=== PATIENT | female | born 1955 | race Caucasian/White ===

== ENCOUNTER 2016-02-21 00:39 | Emergency (ER) | payer OTHER ==
[2016-02-21 00:52] VITALS: TEMP 98; BMI 27.4
--- NOTE | 2016-02-21 00:55 | PDOC ---
History of Present Illness - History of Present Illness Initial Comments: 02/21/16 04:40 Patient is a 60 year old female with significant medical hx of HTN, migraines, GERD, IBS, Hep C, anxiety, depression, and laminectomy who is presenting to the ED s/p fall. The patient fell after getting out of the wheelchair from her assisted living facility. The patient is somnolent and not answering questions. Upon second interview, patient was awake and alert. The patient reports she feels fine but doesn't remember the fall. Patient offers no complaints. <Zaida Zepeda - Last Filed: 02/21/16 04:40> <Valentina Valverde - Last Filed: 02/21/16 05:51> - General Chief Complaint: Injury Stated Complaint: FALL Time Seen by Provider: 02/21/16 00:55 Past History <Zaida Zepeda - Last Filed: 02/21/16 04:40> - Past Medical History Anemia: No Asthma: No Cancer: No Cardiac Disorders: No CVA: No COPD: No CHF: No Dementia: No Diabetes: No GI Disorders: Yes (GERD, IBS) Disorders: Yes HTN: Yes Hypercholesterolemia: No Liver Disease: Yes Psychiatric Problems: Yes (ANXIETY.) Seizures: No Thyroid Disease: No - Surgical History Abdominal Surgery: No Appendectomy: No Cardiac Surgery: No Cholecystectomy: No Lung Surgery: No Neurologic Surgery: Yes (spinal fusion from neck to rectum.) Orthopedic Surgery: Yes (right shoulder replacement, left wrist repair) - Psycho/Social/Smoking Cessation Hx Anxiety: Yes Suicidal Ideation: No Smoking Status: No Smoking History: Unknown if ever smoked Years of Tobacco Use: 10 Have you smoked in the past 12 months: No Number of Cigarettes Smoked Daily: 0 If you are a former smoker, when did you quit?: 20 years ago Hx Alcohol Use: No Drug/Substance Use Hx: No Substance Use Type: None Hx Substance Use Treatment: No <Valentina Valverde - Last Filed: 02/21/16 05:51> - Past Medical History Allergies/Adverse Reactions: Allergies Allergy/AdvReac Type Severity Reaction Status Date / Time No Known Allergies Allergy Verified 02/21/16 00:52 Home Medications: Ambulatory Orders Acyclovir [Zovirax -] 800 mg PO BID 01/06/16 Clonazepam [Klonopin] 1 mg PO HS 01/06/16 Clonazepam [Klonopin] 2 mg PO HS 01/06/16 Fluoxetine HCl 20 mg PO ASDIR 01/06/16 Furosemide [Lasix -] 60 mg PO DAILY 01/06/16 Gabapentin [Neurontin] 600 mg PO TID 01/06/16 Lactulose 20 gm PO QID 01/06/16 Ledipasvir/Sofosbuvir [Harvoni 90-400 mg Tablet] 1 each PO DAILY 01/06/16 Magnesium Hydrox 2400MG/30Ml [Milk of Magnesia -] 30 ml PO HS 01/06/16 Nystatin Cream [Mycostatin Cream -] 1 applic TP DAILY 01/06/16 Oxycodone HCl/Acetaminophen [Percocet 10-325 mg Tablet] 1 each PO Q6H 01/06/16 Polyethylene Glycol 3350 [Miralax (For Daily Use) -] 17 gm PO DAILY 01/06/16 Potassium Chloride 20 meq PO DAILY 01/06/16 Pramipexole Di-HCl [Mirapex] 0.25 mg PO AM 01/06/16 Pramipexole Di-HCl [Mirapex] 0.5 mg PO ACDIN 01/06/16 Quetiapine Fumarate [Seroquel] 400 tab PO HS 01/06/16 Topiramate [Topamax] 50 mg PO BID 01/06/16 Review of Systems - Review of Systems Comments:: 02/21/16 04:42 CONSTITUTIONAL: Absent: fever, chills, diaphoresis, generalized weakness, malaise, loss of appetite HEENT: Absent: rhinorrhea, nasal congestion, throat pain, throat swelling, difficulty swallowing, mouth swelling, ear pain, eye pain, visual changes CARDIOVASCULAR: Absent: chest pain, syncope, palpitations, irregular heart rate, lightheadedness , peripheral edema RESPIRATORY: Absent: cough, shortness of breath, dyspnea with exertion, orthopnea, wheezing, stridor, hemoptysis GASTROINTESTINAL: Absent: abdominal pain, abdominal distension, nausea, vomiting, diarrhea, constipation, melena, hematochezia GENITOURINARY: Absent: dysuria, frequency, urgency, hesitancy, hematuria, flank pain, genital pain MUSCULOSKELETAL: Absent: myalgia, arthralgia, joint swelling SKIN: Absent: rash, itching, pallor HEMATOLOGIC/IMMUNOLOGIC: Absent: easy bleeding, easy bruising, lymphadenopathy, frequent infections ENDOCRINE: Absent: unexplained weight gain, unexplained weight loss, heat intolerance, cold intolerance NEUROLOGIC: Absent: headache, focal weakness or paresthesia, dizziness, unsteady gait, seizure, mental status changes, bladder or bowel incontinence. PSYCHIATRIC: Absent: anxiety, depression, suicidal or homicidal ideation, hallucinations <Zaida Zepeda - Last Filed: 02/21/16 04:40> *Physical Exam - Vital Signs Last Vital Signs Temp Pulse Resp BP Pulse Ox 98 F 65 16 106/60 98 02/21/16 00:50 02/21/16 00:50 02/21/16 00:50 02/21/16 00:50 02/21/16 00:50 - Physical Exam Comments: 02/21/16 04:42 GENERAL: Well developed, well nourished. Awake and alert. No acute distress. HEENT: Normocephalic, atraumatic. PERRLA, EOMI. No conjunctival pallor. Sclera are non- icteric. Moist mucous membranes. Oropharynx is clear. NECK: Supple. Full ROM. No JVD. Carotid pulses 2+ and symmetric, without bruits. No thyromegaly. No lymphadenopathy. CARDIOVASCULAR: Regular rate and rhythm. No murmurs, rubs, or gallops. Distal pulses are 2+ and symmetric. PULMONARY: No evidence of respiratory distress. Lungs clear to auscultation bilaterally. No wheezing, rales or rhonchi. ABDOMINAL: Soft. Non-tender. Non-distended. No rebound or guarding. No organomegaly. Normoactive bowel sounds. MUSCULOSKELETAL: Normal range of motion at all joints. No bony deformities or tenderness. No CVA tenderness. EXTREMITIES: No cyanosis. No clubbing. No edema. No calf tenderness. SKIN: Warm and dry. Normal capillary refill. No rashes. No jaundice. NEUROLOGICAL: Alert, awake, appropriate. AAOX3. Cranial nerves 2-12 intact. Normal speech. PSYCHIATRIC: Cooperative. Good eye contact. Appropriate mood and affect. <Zaida Zepeda - Last Filed: 02/21/16 04:40> - Vital Signs Last Vital Signs Temp Pulse Resp BP Pulse Ox 98 F 65 16 106/60 98 02/21/16 00:50 02/21/16 00:50 02/21/16 00:50 02/21/16 00:50 02/21/16 00:50 <Valentina Valverde - Last Filed: 02/21/16 05:51> ED Treatment Course - LABORATORY CBC & Chemistry Diagram: 02/21/16 01:15 02/21/16 01:15 - ADDITIONAL ORDERS Additional order review: Laboratory Results 02/21/16 02/21/16 01:15 01:15 Sodium 143 Potassium 2.8 L* Chloride 108 H Carbon Dioxide 22 D Anion Gap 13 BUN 18 D Creatinine 1.3 H Creat Clearance w eGFR 41.50 Random Glucose 89 Calcium 8.4 L Total Bilirubin 0.4 AST 23 D ALT 24 Alkaline Phosphatase 165 H D Ammonia 29.29 Total Protein 7.3 Albumin 3.5 02/21/16 01:15 RBC 3.85 MCV 97.4 H MCHC 32.1 RDW 15.8 H MPV 7.5 Neutrophils % 49.7 Lymphocytes % 38.8 Monocytes % 9.8 Eosinophils % 1.1 Basophils % 0.6 <Zaida Zepeda - Last Filed: 02/21/16 04:40> - LABORATORY CBC & Chemistry Diagram: 02/21/16 01:15 02/21/16 01:15 <Valentina Valverde - Last Filed: 02/21/16 05:51> Medical Decision Making - Medical Decision Making 02/21/16 02:12 Clinical Laboratory Science Professor: ([email or web address]) Begin of Report Content Referring Physician: Valentina Valverde Patient Name: Ave Hopson THIS IS A PRELIMINARYREPORT FROM [facility] OPERATOR HELPER EXAM: CT brain without contrast IMAGES: 145 EXAM DATE AND TIME: 2016-02-21 01:38:22.0 REASON FOR EXAM: Fell out of wheelchair. Drowsy. COMPARISON: No FINDINGS: Normal brain. No acute intracranial abnormality. No bleed. No visible acute infarct. Osseous structures are intact. 02/21/16 05:49 Pt comes after "fall from her wheelchair" Exam is normal. Pt is sleepy and asks that we not bother her. Upon resting and awaking, pt is alert. Labs demonstrate hypo K+ and she tells us that she always has low K+. We repleted her electrolytes. SHe will be sent back to her assisted living facility as her neuro exam is normal, and other labs are normal. <Valentina Valverde - Last Filed: 02/21/16 05:51> *DC/Admit/Observation/Transfer - Attestations Scribe Attestion: 02/21/16 04:43 Documentation prepared by Zaida Zepeda, acting as medical records administrator for Valentina Valverde MD. <Zaida Zepeda - Last Filed: 02/21/16 04:40> - Discharge Dispostion Admit: No <Valentina Valverde - Last Filed: 02/21/16 05:51> Diagnosis at time of Disposition: Fall, Hypokalemia - Discharge Dispostion Disposition: HOME Condition at time of disposition: Stable - Referrals Referrals: Melody Bailon MD [Primary Care Provider] -
[2016-02-21 01:21] LABS: BASOPHIL 0.6 % (0-2.0); EOSINOPHIL 1.1 % (0-4.5); MCH 31.3 pg (25.7-33.7); MCHC 32.1 g/dl (32.0-36.0); MEAN CELL VOLUME 97.4 fl (80-96); MEAN PLT VOLUME 7.5 fl (7.5-11.1); NEUTROPHILS 49.7 % (42.8-82.8); PLATELET COUNT 271 K/MM3 (134-434); RDW 15.8 % (11.6-15.6); WHITE BLOOD COUNT 7.2 K/mm3 (4.0-10.0)
[2016-02-21 01:50] LABS: ALBUMIN 3.5 g/dl (3.4-5.0); BILIRUBIN,TOTAL 0.4 mg/dL (0.2-1.0); CALCIUM 8.4 mg/dL (8.5-10.1); CREATININE 1.3 mg/dL (0.55-1.02); TOT PROT 7.3 g/dl (6.4-8.2)
[2016-02-21] MEDS ORDERED: MAGNESIUM SULF 50% (8.12 MEQ/2 ML-1 GM VIAL) IVPB ONE (01:56)
[2016-02-21] MEDS ORDERED: MAGNESIUM SULF 50% (8.12 MEQ/2 ML-1 GM VIAL) ONE (02:19)
[2016-02-21] MEDS ORDERED: KCL 10 MEQ IVPB 300 ML IVPB ONE (02:20)
[2016-02-21] MEDS: KCL 10 MEQ IVPB 100 ML IVPB SCH ×3 (02:35→05:18)
[2016-02-21] MEDS ORDERED: POTASSIUM CHLORIDE 40 MEQ/30 ML UNIT DOSE CUP PO ONE (03:12)
[2016-02-21] MEDS ORDERED: POTASSIUM CHLORIDE 40 MEQ/30 ML UNIT DOSE CUP ONE (05:13)
[2016-02-21 07:02] VITALS: BP 153/72; PULSE 89
== END 2016-02-21 07:25 | disposition home or self-care (01) ==
LOC: JER 00:39
PROC: 3E0337Z Introduction of Electrolytic and Water Balance Substance into Peripheral Vein, Percutaneous Approach (ICD-10-PCS; principal; 2016-02-21)
PROC: 3E033GC Introduction of Other Therapeutic Substance into Peripheral Vein, Percutaneous Approach (ICD-10-PCS; 2016-02-21)
DX: E87.6 Hypokalemia (principal); W05.0XXA Fall from non-moving wheelchair, initial encounter; Y93.89 Activity, other specified; Y92.128 Other place in nursing home as the place of occurrence of the external cause; I10 Essential (primary) hypertension; K21.9 Gastro-esophageal reflux disease without esophagitis; F41.9 Anxiety disorder, unspecified
CPT/HCPCS: 36415; 70450-TC; 71010-TC; 80053; 82140; 85025; 96365; 96375; 99282-25

== ENCOUNTER 2016-04-14 11:13 | Emergency (ER) | payer OTHER ==
[2016-04-14 11:30] VITALS: PULSE 76; TEMP 97.4; BMI 27.4
--- NOTE | 2016-04-14 11:30 | PDOC ---
History of Present Illness - History of Present Illness Initial Comments: 04/14/16 11:52 Patient is a 60 year old female with significant medical hx of HTN, migraines, GERD, IBS, Hep C, anxiety, depression, and laminectomy who is [facility] with [facility] to the left foot. Patient reports she was wheeling herself in a wheelchair, when she banged her right foot into the wall and fell out. She complains of pain to the foot at rest and with weight bearing. The patient is a poor historian. 04/14/16 12:01 After discussing the patient with case filler from [facility], the patient was sent to the ED today because she fell and hit her right knee while using a walker with wheels. <Zaida Zepeda - Last Filed: 04/14/16 12:03> <Neptali Mora - Last Filed: 04/14/16 15:16> - General Chief Complaint: Injury Stated Complaint: FALL Time Seen by Provider: 04/14/16 11:30 Past History <Zaida Zepeda - Last Filed: 04/14/16 12:03> - Past Medical History Anemia: No Asthma: No Cancer: No Cardiac Disorders: No CVA: No COPD: No CHF: No Dementia: No Diabetes: No GI Disorders: Yes (GERD, IBS) Disorders: Yes HTN: Yes Hypercholesterolemia: No Liver Disease: Yes Psychiatric Problems: Yes (ANXIETY.) Seizures: No Thyroid Disease: No - Surgical History Abdominal Surgery: No Appendectomy: No Cardiac Surgery: No Cholecystectomy: No Lung Surgery: No Neurologic Surgery: Yes (spinal fusion from neck to rectum.) Orthopedic Surgery: Yes (right shoulder replacement, left wrist repair) - Immunization History Immunization Up to Date: Yes - Psycho/Social/Smoking Cessation Hx Anxiety: Yes Suicidal Ideation: No Smoking Status: No Smoking History: Former smoker Years of Tobacco Use: 10 Have you smoked in the past 12 months: No Number of Cigarettes Smoked Daily: 0 If you are a former smoker, when did you quit?: 1969 Information on smoking cessation initiated: No Hx Alcohol Use: No Drug/Substance Use Hx: No Substance Use Type: None Hx Substance Use Treatment: No <Neptali Mora - Last Filed: 04/14/16 15:16> - Past Medical History Allergies/Adverse Reactions: Allergies Allergy/AdvReac Type Severity Reaction Status Date / Time No Known Allergies Allergy Verified 04/14/16 11:21 Home Medications: Ambulatory Orders Acyclovir [Zovirax -] 800 mg PO BID 01/06/16 Clonazepam [Klonopin] 2 mg PO HS 01/06/16 Fluoxetine HCl 80 mg PO DAILY 01/06/16 Furosemide [Lasix -] 60 mg PO DAILY 01/06/16 Gabapentin [Neurontin] 600 mg PO TID 01/06/16 Lactulose 20 gm PO QID 01/06/16 Ledipasvir/Sofosbuvir [Harvoni 90-400 mg Tablet] 1 each PO DAILY 01/06/16 Magnesium Hydrox 2400MG/30Ml [Milk of Magnesia -] 30 ml PO HS 01/06/16 Nystatin Cream [Mycostatin Cream -] 1 applic TP DAILY 01/06/16 Oxycodone HCl/Acetaminophen [Percocet 10-325 mg Tablet] 1 each PO Q6H 01/06/16 Polyethylene Glycol 3350 [Miralax (For Daily Use) -] 17 gm PO DAILY 01/06/16 Potassium Chloride 20 meq PO DAILY 01/06/16 Pramipexole Di-HCl [Mirapex] 0.25 mg PO AM 01/06/16 Quetiapine Fumarate [Seroquel] 400 tab PO HS 01/06/16 Topiramate [Topamax] 50 mg PO BID 01/06/16 Potassium Chloride 20 meq PO DAILY 04/14/16 Sulfamethoxazole/Trimethoprim [Bactrim Ds -] 1 tab PO DAILY 04/14/16 Review of Systems - Review of Systems Comments:: 04/14/16 11:52 GENERAL/CONSTITUTIONAL: No fever or chills. No weakness. HEAD, EYES, EARS, NOSE AND THROAT: No change in vision. No ear pain or discharge. No sore throat. CARDIOVASCULAR: No chest pain or shortness of breath. RESPIRATORY: No cough, wheezing, or hemoptysis. GASTROINTESTINAL: No nausea, vomiting, diarrhea or constipation. GENITOURINARY: No dysuria, frequency, or change in urination. MUSCULOSKELETAL: Right foot pain. No joint or muscle swelling. No neck or back pain. SKIN: No rash NEUROLOGIC: No headache, vertigo, loss of consciousness, or change in strength/ sensation. 04/14/16 12:03 Patient is an unreliable historian. <Zaida Zepeda - Last Filed: 04/14/16 12:03> *Physical Exam - Vital Signs Last Vital Signs Temp Pulse Resp BP Pulse Ox 97.4 F L 76 18 145/84 100 04/14/16 11:21 04/14/16 11:21 04/14/16 11:21 04/14/16 11:21 04/14/16 11:21 - Physical Exam Comments: 04/14/16 11:53 GENERAL: Awake, alert, and fully oriented, in no acute distress HEAD: No signs of trauma EYES: PERRLA, EOMI, sclera anicteric, conjunctiva clear ENT: Auricles normal inspection, hearing grossly normal, nares patent, oropharynx clear without exudates. Moist mucosa NECK: Normal ROM, supple, no lymphadenopathy, JVD, or masses LUNGS: Breath sounds equal, clear to auscultation bilaterally. No wheezes, and no crackles HEART: Regular rate and rhythm, normal S1 and S2, no murmurs, rubs or gallops ABDOMEN: Soft, nontender, normoactive bowel sounds. No guarding, no rebound. No masses EXTREMITIES: Normal range of motion, no edema. No clubbing or cyanosis. No cords, deformity, erythema, or tenderness NEUROLOGICAL: Cranial nerves II through XII grossly intact. Normal speech, normal gait SKIN: Warm, Dry, normal turgor, no rashes or lesions noted. ENDOCRINE: No increased thirst. No abnormal weight change. HEMATOLOGIC/LYMPHATIC: No anemia, easy bleeding, or history of blood clots. ALLERGIC/IMMUNOLOGIC: No hives or skin allergy. <Luc Zepedaantha - Last Filed: 04/14/16 12:03> - Vital Signs Last Vital Signs Temp Pulse Resp BP Pulse Ox 97.4 F L 76 18 145/84 100 04/14/16 11:21 04/14/16 11:21 04/14/16 11:21 04/14/16 11:21 04/14/16 11:21 <Neptali Mora - Last Filed: 04/14/16 15:16> ED Treatment Course - LABORATORY CBC & Chemistry Diagram: 04/14/16 12:48 04/14/16 13:00 <Neptali Mora - Last Filed: 04/14/16 15:16> *DC/Admit/Observation/Transfer - Attestations Scribe Attestion: 04/14/16 11:55 Documentation prepared by Zaida Zepeda, acting as certified medical dosimetrist for Neptali Mora MD. <Zaida Zepeda - Last Filed: 04/14/16 12:03> - Discharge Dispostion Admit: No - Attestations Physician Attestion: 04/14/16 11:30 I, Dr. Neptali Mora, attest that this document has been prepared under my direction and personally reviewed by me in its entirety. I further attest, that it accurately reflects all work, treatment, procedures and medical decision -making performed by me. <Neptali Mora - Last Filed: 04/14/16 15:16> Diagnosis at time of Disposition: Knee contusion Qualifiers: Encounter type: initial encounter Laterality: right Qualified Code(s): S80.01XA - Contusion of right knee, initial encounter - Discharge Dispostion Disposition: HOME Condition at time of disposition: Good - Referrals Referrals: Melody Bailon MD [Primary Care Provider] - - Patient Instructions Printed Discharge Instructions: DI for Contusion Additional Instructions: Ave- Sorry this happened to you this morning. Return to us if any problems. You can use the Percocet that you already have for pain in that right knee. Return to us if any problems. Best- Dr. Neptali Mora
[2016-04-14 13:04] LABS: MCH 32.1 pg (25.7-33.7); MCHC 32.7 g/dl (32.0-36.0); MEAN CELL VOLUME 98.4 fl (80-96); MEAN PLT VOLUME 7.8 fl (7.5-11.1); PLATELET COUNT 221 K/MM3 (134-434); RDW 15.1 % (11.6-15.6); WHITE BLOOD COUNT 9.9 K/mm3 (4.0-10.0)
[2016-04-14 13:16] LABS: INR 1.05 (0.82-1.09); PROTHROMBIN TIME (PATIENT) 11.6 SEC (9.98-11.88)
[2016-04-14 13:30] LABS: ALBUMIN 3.6 g/dl (3.4-5.0); BILIRUBIN,TOTAL 0.4 mg/dL (0.2-1.0); CALCIUM 8.6 mg/dL (8.5-10.1); CREATININE 1.4 mg/dL (0.55-1.02); TOT PROT 7.5 g/dl (6.4-8.2)
[2016-04-14 15:40] VITALS: BP 152/88
== END 2016-04-14 15:40 ==
LOC: JER 11:13
DX: S80.01XA Contusion of right knee, initial encounter (principal); W18.39XA Other fall on same level, initial encounter; Y93.89 Activity, other specified; Y92.128 Other place in nursing home as the place of occurrence of the external cause; I10 Essential (primary) hypertension; K21.9 Gastro-esophageal reflux disease without esophagitis; B18.2 Chronic viral hepatitis C; F41.9 Anxiety disorder, unspecified
CPT/HCPCS: 36415; 73562-TC-RT; 80053; 82140; 85027; 85610; 99282-25

== ENCOUNTER 2016-04-15 01:10 | Emergency (ER) | payer OTHER ==
[2016-04-15 01:14] VITALS: BP 123/66; PULSE 70; TEMP 97.2; BMI 21.9
--- NOTE | 2016-04-15 02:43 | PDOC ---
History of Present Illness - General History Source: Patient, Longterm Records Exam Limitations: Other - History of Present Illness Initial Comments: 04/15/16 02:44 The patient is a 60 year old female, with a significant past medical history of migraines, hypertension, GERD, irritable bowel syndrome, Hep C, anxiety, depression, and laminectomy, who presents to the emergency department from assisted living s/p fall earlier today. The patient does not describe the method of her fall, and denies any head trauma, LOC, headache, changes in vision , or dizziness. Per records, the patient is on methadone. The patient recently presented to the ED on 04/14/16 s/p falling out of her wheelchair and banging her right foot. The patients history is limited due to current clinical condition. Past Surgical History: Spinal fusion from neck to rectum, right shoulder replacement, left hip repair Social History: Former Smoker (1969). PCP: Dr. Melody Bailon <Kyaw Rangel - Last Filed: 04/15/16 02:43> <Valentina Valverde - Last Filed: 04/15/16 23:39> - General Chief Complaint: Injury Stated Complaint: WEAKNESS Time Seen by Provider: 04/15/16 01:12 Past History <Kyaw Rangel - Last Filed: 04/15/16 02:43> - Past Medical History Anemia: No Asthma: No Cancer: No Cardiac Disorders: No CVA: No COPD: No CHF: No Dementia: No Diabetes: No GI Disorders: Yes (GERD, IBS) Disorders: Yes HTN: Yes Hypercholesterolemia: No Liver Disease: Yes Psychiatric Problems: Yes (ANXIETY.) Seizures: No Thyroid Disease: No - Surgical History Abdominal Surgery: No Appendectomy: No Cardiac Surgery: No Cholecystectomy: No Lung Surgery: No Neurologic Surgery: Yes (spinal fusion from neck to rectum.) Orthopedic Surgery: Yes (right shoulder replacement, left wrist repair) - Immunization History Immunization Up to Date: Yes - Psycho/Social/Smoking Cessation Hx Anxiety: Yes Suicidal Ideation: No Smoking Status: No Smoking History: Unknown if ever smoked Years of Tobacco Use: 10 Have you smoked in the past 12 months: No Number of Cigarettes Smoked Daily: 0 If you are a former smoker, when did you quit?: 20 years ago Information on smoking cessation initiated: No Hx Alcohol Use: No Drug/Substance Use Hx: No Substance Use Type: None Hx Substance Use Treatment: No <Valentina Valverde - Last Filed: 04/15/16 23:39> - Past Medical History Allergies/Adverse Reactions: Allergies Allergy/AdvReac Type Severity Reaction Status Date / Time No Known Allergies Allergy Verified 04/15/16 01:11 Home Medications: Ambulatory Orders Acyclovir [Zovirax -] 800 mg PO BID 01/06/16 Clonazepam [Klonopin] 2 mg PO HS 01/06/16 Fluoxetine HCl 80 mg PO DAILY 01/06/16 Furosemide [Lasix -] 60 mg PO ASDIR 01/06/16 Gabapentin [Neurontin] 600 mg PO TID 01/06/16 Lactulose 20 gm PO QID 01/06/16 Ledipasvir/Sofosbuvir [Harvoni 90-400 mg Tablet] 1 each PO DAILY 01/06/16 Nystatin Cream [Mycostatin Cream -] 1 applic TP DAILY 01/06/16 Oxycodone HCl/Acetaminophen [Percocet 10-325 mg Tablet] 1 each PO Q6H 01/06/16 Potassium Chloride 20 meq PO DAILY 01/06/16 Pramipexole Di-HCl [Mirapex] 0.25 mg PO AM 01/06/16 Quetiapine Fumarate [Seroquel] 400 tab PO HS 01/06/16 Topiramate [Topamax] 50 mg PO BID 01/06/16 Sulfamethoxazole/Trimethoprim [Bactrim Ds -] 1 tab PO BID 04/14/16 Naproxen [Naprosyn -] 500 mg PO BID 04/15/16 Pramipexole Di-HCl [Mirapex] 0.5 mg PO HS 04/15/16 Review of Systems - Review of Systems Able to Perform ROS?: No Comments:: 04/15/16 02:44 The patient's history is limited due to current clinical condition. <Kyaw Rangel - Last Filed: 04/15/16 02:43> *Physical Exam - Vital Signs Last Vital Signs Temp Pulse Resp BP Pulse Ox 97.2 F L 70 16 123/66 99 04/15/16 01:11 04/15/16 01:11 04/15/16 01:11 04/15/16 01:11 04/15/16 01:11 - Physical Exam Comments: 04/15/16 02:45 GENERAL: The patient is in no acute distress. Afebrile HEAD: No signs of trauma EYES: PERRLA, EOMI, sclera anicteric, conjunctiva clear ENT: Auricles normal inspection, hearing grossly normal, nares patent, oropharynx clear without exudates. Moist mucosa NECK: Normal ROM, supple, no lymphadenopathy, JVD, or masses LUNGS: Breath sounds equal, clear to auscultation bilaterally. No wheezes, and no crackles HEART: Regular rate and rhythm, normal S1 and S2, no murmurs, rubs or gallops ABDOMEN: Constipated (Gassy). Soft, nontender. No guarding, no rebound. No masses EXTREMITIES: Bilateral pitting edema of the legs up to her thighs. Normal range of motion. No clubbing or cyanosis. No cords, erythema, or tenderness NEUROLOGICAL: Cranial nerves II through XII grossly intact. Normal speech, normal gait SKIN: Warm, Dry, normal turgor, no rashes or lesions noted. <Kyaw Rangel - Last Filed: 04/15/16 02:43> - Vital Signs Last Vital Signs Temp Pulse Resp BP Pulse Ox 97.2 F L 70 16 123/66 99 04/15/16 01:11 04/15/16 01:11 04/15/16 01:11 04/15/16 01:11 04/15/16 01:11 <Valentina Valverde - Last Filed: 04/15/16 23:39> ED Treatment Course - LABORATORY CBC & Chemistry Diagram: 04/15/16 01:43 04/15/16 03:43 <Valentina Valverde - Last Filed: 04/15/16 23:39> Medical Decision Making - Medical Decision Making 04/15/16 23:37 Pt comes after a fall at her assisted living facility; she is on methadone. Now she is alert and awake and arousable when she tries to sleep. SHe tells us that she didn't hit her head and that nothing hurts her. Her exam is normal. Normal neuro exam. She has normal basic labs and she will go back home. <Valentina Valverde - Last Filed: 04/15/16 23:39> *DC/Admit/Observation/Transfer - Attestations Scribe Attestion: 04/15/16 02:45 Documentation prepared by Kyaw Rangel, acting as biomedical engineer for Valentina Valverde MD. <Kyaw Rangel - Last Filed: 04/15/16 02:43> - Discharge Dispostion Admit: No <Valentina Valverde - Last Filed: 04/15/16 23:39> Diagnosis at time of Disposition: Fall, Methadone maintenance therapy patient - Discharge Dispostion Disposition: HOME Condition at time of disposition: Stable - Referrals Referrals: Melody Bailon MD [Primary Care Provider] - - Patient Instructions Printed Discharge Instructions: How to Prevent Falls
[2016-04-15 03:53] LABS: BASOPHIL 0.2 % (0-2.0); EOSINOPHIL 0.9 % (0-4.5); MCH 32.3 pg (25.7-33.7); MCHC 32.6 g/dl (32.0-36.0); MEAN CELL VOLUME 99.2 fl (80-96); MEAN PLT VOLUME 8.2 fl (7.5-11.1); NEUTROPHILS 66.1 % (42.8-82.8); PLATELET COUNT 215 K/MM3 (134-434); RDW 15.2 % (11.6-15.6); WHITE BLOOD COUNT 10.5 K/mm3 (4.0-10.0)
[2016-04-15 04:13] LABS: ALBUMIN 3.3 g/dl (3.4-5.0); BILIRUBIN,TOTAL 0.3 mg/dL (0.2-1.0); CREATININE 1.7 mg/dL (0.55-1.02); TOT PROT 7.2 g/dl (6.4-8.2)
== END 2016-04-15 06:14 | disposition home or self-care (01) ==
LOC: JER 01:10
DX: Z04.3 Encounter for examination and observation following other accident (principal); W18.30XA Fall on same level, unspecified, initial encounter; Y93.9 Activity, unspecified; Y92.238 Other place in hospital as the place of occurrence of the external cause; F11.20 Opioid dependence, uncomplicated; F41.9 Anxiety disorder, unspecified; K21.9 Gastro-esophageal reflux disease without esophagitis; I10 Essential (primary) hypertension; K76.9 Liver disease, unspecified; M43.20 Fusion of spine, site unspecified
CPT/HCPCS: 36415; 80053; 85025; 99283-25

== ENCOUNTER 2016-04-26 21:54 | Emergency (ER) | payer OTHER ==
[2016-04-26 22:09] VITALS: TEMP 98.3; BMI 24.1
--- NOTE | 2016-04-26 23:04 | PDOC ---
History of Present Illness - History of Present Illness Initial Comments: 04/26/16 23:50 Patient is a 60 year old female, from assisted living facility, with significant medical hx of HTN, migraines, GERD, IBS, Hep C, anxiety, depression , and laminectomy who has been sent to the ED from facility for fall. Tonight the patient was sitting in a chair, waiting for her girlfriend to get out of the bathroom, when she fell asleep and fell forward onto the floor, hitting her face. The patient sustained a bruise to her nose. She states that she feels fine and wants to go home. Denies nausea, vomiting, shortness of breath, chest pain, or dizziness. <Zaida Zepeda - Last Filed: 04/27/16 00:42> <Oumar Mccormack - Last Filed: 04/27/16 01:03> - General Chief Complaint: Injury Stated Complaint: FALL Time Seen by Provider: 04/26/16 22:30 Past History <Zaida Zepeda - Last Filed: 04/27/16 00:42> - Past Medical History Anemia: No Asthma: No Cancer: No Cardiac Disorders: No CVA: No COPD: No CHF: No Dementia: No Diabetes: No GI Disorders: Yes (GERD, IBS) Disorders: Yes HTN: Yes Hypercholesterolemia: No Liver Disease: Yes (hx of hep c) Psychiatric Problems: Yes (ANXIETY.depression) Seizures: No Thyroid Disease: No - Surgical History Abdominal Surgery: No Appendectomy: No Cardiac Surgery: No Cholecystectomy: No Lung Surgery: No Neurologic Surgery: Yes (spinal fusion from neck to rectum.) Orthopedic Surgery: Yes (right shoulder replacement, left wrist repair) - Immunization History Immunization Up to Date: Yes - Psycho/Social/Smoking Cessation Hx Anxiety: Yes Suicidal Ideation: No Smoking Status: No Smoking History: Unknown if ever smoked Years of Tobacco Use: 10 Have you smoked in the past 12 months: No Number of Cigarettes Smoked Daily: 0 If you are a former smoker, when did you quit?: 20 years ago Hx Alcohol Use: Yes (hx of alcohol abuse) Drug/Substance Use Hx: Yes (hx of heroin abuse) Substance Use Type: None Hx Substance Use Treatment: No <Oumar Mccormack - Last Filed: 04/27/16 01:03> - Past Medical History Allergies/Adverse Reactions: Allergies Allergy/AdvReac Type Severity Reaction Status Date / Time No Known Allergies Allergy Verified 04/26/16 22:06 Home Medications: Ambulatory Orders Acyclovir [Zovirax -] 800 mg PO BID 01/06/16 Clonazepam [Klonopin] 4 mg PO HS 01/06/16 Fluoxetine HCl 80 mg PO DAILY 01/06/16 Furosemide [Lasix -] 60 mg PO Q48H 01/06/16 Gabapentin [Neurontin] 600 mg PO TID 01/06/16 Potassium Chloride 20 meq PO DAILY 01/06/16 Pramipexole Di-HCl [Mirapex] 0.25 mg PO AM 01/06/16 Quetiapine Fumarate [Seroquel] 400 tab PO HS 01/06/16 Topiramate [Topamax] 50 mg PO BID 01/06/16 Pramipexole Di-HCl [Mirapex] 0.5 mg PO HS 04/15/16 Lactulose 20 gm PO QID 04/26/16 Ledipasvir/Sofosbuvir [Harvoni 90-400 mg Tablet] 1 each PO DAILY 04/26/16 Lurasidone HCl [Latuda] 40 mg PO DAILY 04/26/16 Cephalexin [Keflex] 500 mg PO QID #28 capsule 04/27/16 Review of Systems - Review of Systems Comments:: 04/26/16 23:51 CONSTITUTIONAL: No fever, no chills, no fatigue EYES: No visual changes ENT: Bruise to the nose. No ear pain, no sore throat CARDIOVASCULAR: No chest pain, no palpitations RESPIRATORY: No cough, no SOB GI: No abdominal pain, no nausea, no vomiting, no constipation, no diarrhea GENITOURINARY: No dysuria, no frequency, no hematuria MUSKULOSKELETAL: No backpain, no joint pain, no myalgias SKIN: No rash NEURO: No headache <KatelynZaida - Last Filed: 04/27/16 00:42> *Physical Exam - Vital Signs Last Vital Signs Temp Pulse Resp BP Pulse Ox 98.3 F 61 18 178/94 98 04/26/16 22:07 04/26/16 22:07 04/26/16 22:07 04/26/16 22:07 04/26/16 22:07 - Physical Exam Comments: 04/26/16 23:51 CONSTITUTIONAL: Well-appearing; well-nourished; in no apparent distress HEAD: Normocephalic; atraumatic EYES: PERRL; EOM intact ENMT: Abrasion to the tip of the nose; normal oropharynx NECK: Supple; non-tender; no cervical lymphadenopathy CARD: Normal S1, S2; no murmurs, rubs, or gallops RESP: Normal chest excursion with respiration; breath sounds clear and equal bilaterally; no wheezes, rhonchi, or rales ABD: Soft, non-distended; non-tender; no palpable organomegaly, no palpable hernias EXT: Deeper proximal 2.5 avulsion to the left knee with surrounding erythema. Normal ROM in all four extremities; distal pulses intact SKIN: Warm, dry, no rash NEURO: No focal neurological deficiencies. 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 No hemorrhage. No mass. No visible infarct. Osseous structures are intact. THIS DOCUMENT HAS BEEN ELECTRONICALLY SIGNED Antonio Mary MD 04/27/2016 00:17 TYSON Morillo Please call Imaging Front Office Attendant [phone] ([phone]) with questions. End of Report Content <Zaida Zepeda - Last Filed: 04/27/16 00:42> Medical Decision Making - Medical Decision Making 04/27/16 01:02 Patient is a 60-year-old female with history of hep C, frequent falls, questionable parkinsonism brought in by EMS after a witnessed mechanical fall from a chair with resultant mild nasal Abrasion. In the ER, patient is awake and alert, non-focal neurologically, GCS-15. CT that and pelvis reveals no acute intra-cranial pathology. Patient follows commands and is able tolerate by mouth. Will discharge with neurology follow-up as needed. <Oumar Mccormack - Last Filed: 04/27/16 01:03> *DC/Admit/Observation/Transfer - Attestations Scribe Attestion: 04/26/16 23:53 Documentation prepared by Zaida Zepeda, acting as registered medical assistant for Oumar Mccormack MD. <Zaida Zepeda - Last Filed: 04/27/16 00:42> - Attestations Physician Attestion: 04/27/16 00:58 The documentation was prepared by the scribe under my direct supervision. I have reviewed the documentation which correctly represents the findings, medical decision-making and critical action taken by me. <Oumar Mccormack - Last Filed: 04/27/16 01:03> Diagnosis at time of Disposition: Head injury, closed Qualifiers: Encounter type: initial encounter Qualified Code(s): S09.90XA - Unspecified injury of head, initial encounter Cellulitis of leg Qualifiers: Laterality: left Qualified Code(s): L03.116 - Cellulitis of left lower limb - Discharge Dispostion Disposition: HOME Condition at time of disposition: Stable - Referrals Referrals: pmd, one week [Other] - Patient Instructions Printed Discharge Instructions: DI for Closed Head Injury, DI for Cellulitis - - Adult
[2016-04-27 01:26] VITALS: BP 158/85; PULSE 71
== END 2016-04-27 01:14 ==
LOC: JER 21:54
DX: S00.31XA Abrasion of nose, initial encounter (principal); L03.116 Cellulitis of left lower limb; W07.XXXA Fall from chair, initial encounter; Y93.89 Activity, other specified; Y92.128 Other place in nursing home as the place of occurrence of the external cause; I10 Essential (primary) hypertension; K21.9 Gastro-esophageal reflux disease without esophagitis; B18.2 Chronic viral hepatitis C; F41.8 Other specified anxiety disorders
CPT/HCPCS: 70450-TC; 99281-25

== ENCOUNTER → 2016-05-25 | Emergency (ER) | payer OTHER ==
[~2016-05-25] MED LIST: SODIUM CHLORIDE 1,000 ML IV STA
[2016-05-25 14:46] VITALS: TEMP 97.8; BMI 26.6
--- NOTE | 2016-05-25 15:07 | PDOC ---
Attending Attestation - Medical Decision Making 05/25/16 16:40 [address] call placed to Dr Bailon at 16:35. Left a voicemail. Awaiting call back. Documentation prepared by Kyaw Rangel, acting as medical technologist clinical for Benigno Prakash MD. <Kyaw Rangel - Last Filed: 05/25/16 16:40> - Resident Resident Name: Keo Steinberg - ED Attending Attestation I have performed the following: I have examined & evaluated the patient, The case was reviewed & discussed with the resident, I agree w/resident's findings & plan, Exceptions are as noted - HPI HPI: 05/25/16 15:19 The patient is a 60 year old female with a significant past medical history of hepatitis C, anxiety/depression, hypertension who presents to the ED complaining of several months of "feeling like she is outside of her body" after she takes her "anti-anxiety" medications. These complaints have been ongoing and are not worse today. She came to the ED today because of ongoing frustration. She denies alcohol use, recreational drug use 05/25/16 15:55 05/25/16 16:35 05/25/16 16:55 - Physicial Exam PE: 05/25/16 15:28 Vitals noted She is well-appearing She has a non-focal neuro exam She does not exhibit any signs of psychosis EKG: Normal sinus rhythm at 66, normal axis, normal intervals, flat T waves in 1 , aVL, inverted T-wave in V5 and V6, early R-wave progression 05/25/16 15:57 05/25/16 16:36 - Medical Decision Making 05/25/16 16:35 I spoke with the patients mother, who confirmed that the symptoms have been ongoing She too suspects that they are medication related 05/25/16 16:[address] Bailon and left a message requesting a call-back 05/25/16 16:36 CBC noted Ammonia noted Lactic acid noted Chemistries pending 05/25/16 17:05 Labs noted She continues to be at baseline Clinical impression: Adverse reaction from medication She would like to go home I discussed the physical exam findings, ancillary test results and final diagnoses with the patient. I answered all of the patient's questions. The patient was satisfied with the care received and felt comfortable with the discharge plan and treatment plan. The patient will call their primary care physician within 24 hours to arrange follow-up and will return to the Emergency Department with any new, persistent or worsening symptoms. <Benigno Prakash - Last Filed: 05/25/16 17:10> Discharge Disposition <Cayla Rangelmau - Last Filed: 05/25/16 16:40> - Discharge Dispostion Last Admission D/C Date: 09/15/15 <Benigno Prakash - Last Filed: 05/25/16 17:10> - Diagnosis Medication adverse effect - Discharge Dispostion Disposition: HOME - Referrals Referrals: Melody Bailon MD [Primary Care Provider] - - Patient Instructions Printed Discharge Instructions: DI for Fatigue Additional Instructions: Speak to your physician about the medications you are taking, and asked if they could be causing your symptoms. Return to the emergency department immediately with ANY new, persistent or worsening symptoms. You MUST call and follow up with your doctor tomorrow. Please make sure your doctor reviews the results of your emergency department evaluation.
[2016-05-25 15:47] LABS: BASOPHIL 0.5 % (0-2.0); EOSINOPHIL 0.7 % (0-4.5); MCH 32.3 pg (25.7-33.7); MCHC 33.1 g/dl (32.0-36.0); MEAN CELL VOLUME 97.4 fl (80-96); MEAN PLT VOLUME 8.1 fl (7.5-11.1); NEUTROPHILS 49.2 % (42.8-82.8); PLATELET COUNT 228 K/MM3 (134-434); RDW 15.2 % (11.6-15.6); WHITE BLOOD COUNT 4.8 K/mm3 (4.0-10.0)
[2016-05-25 15:59] LABS: INR 1.04 (0.82-1.09); PROTHROMBIN TIME (PATIENT) 11.5 SEC (9.98-11.88)
[2016-05-25 16:01] LABS: ACTIVATED PTT 36.9 SECONDS (26.9-34.4)
--- NOTE | 2016-05-25 16:01 | PDOC ---
History of Present Illness - General Chief Complaint: Lightheaded Stated Complaint: DIZZINESS Time Seen by Provider: 05/25/16 15:05 History Source: Patient Exam Limitations: No Limitations - History of Present Illness Initial Comments: 05/25/16 15:54 60 yo F from half-way with PMHx of anxiety and depression presents with 2 mo history of worsening fatigue. She states that 2 mo ago she was started on unknown parkinson medication and since then she has been suffering from out of body experience. She state that she feels as if she is on the "outside looking in". There are no alleviating or aggravating factors. Denies CP, FAY, SOB, abd.Pain, N/V. Timing/Duration: unsure Severity: mild Past History - Travel Traveled outside of the country in the last 30 days: No Close contact w/someone who was outside of country & ill: No - Past Medical History Allergies/Adverse Reactions: Allergies Allergy/AdvReac Type Severity Reaction Status Date / Time No Known Allergies Allergy Verified 05/25/16 14:45 Home Medications: Ambulatory Orders Acyclovir [Zovirax -] 800 mg PO BID 01/06/16 Clonazepam [Klonopin] 4 mg PO HS 01/06/16 Fluoxetine HCl 80 mg PO DAILY 01/06/16 Furosemide [Lasix -] 60 mg PO Q48H 01/06/16 Gabapentin [Neurontin] 600 mg PO TID 01/06/16 Potassium Chloride 20 meq PO DAILY 01/06/16 Pramipexole Di-HCl [Mirapex] 0.25 mg PO AM 01/06/16 Quetiapine Fumarate [Seroquel] 400 tab PO HS 01/06/16 Topiramate [Topamax] 50 mg PO BID 01/06/16 Pramipexole Di-HCl [Mirapex] 0.5 mg PO HS 04/15/16 Lactulose 20 gm PO QID 04/26/16 Ledipasvir/Sofosbuvir [Harvoni 90-400 mg Tablet] 1 each PO DAILY 04/26/16 Lurasidone HCl [Latuda] 40 mg PO DAILY 04/26/16 Cephalexin [Keflex] 500 mg PO QID #28 capsule 04/27/16 Anemia: No Asthma: No Cancer: No Cardiac Disorders: No CVA: No COPD: No CHF: No Dementia: No Diabetes: No GI Disorders: Yes (GERD, IBS) Disorders: Yes HTN: Yes Hypercholesterolemia: No Liver Disease: Yes (hx of hep c) Psychiatric Problems: Yes (ANXIETY.depression) Seizures: No Thyroid Disease: No - Surgical History Abdominal Surgery: No Appendectomy: No Cardiac Surgery: No Cholecystectomy: No Lung Surgery: No Neurologic Surgery: Yes (spinal fusion from neck to rectum.) Orthopedic Surgery: Yes (right shoulder replacement, left wrist repair) - Immunization History Immunization Up to Date: Yes - Psycho/Social/Smoking Cessation Hx Anxiety: Yes Suicidal Ideation: No Smoking Status: No Smoking History: Former smoker Years of Tobacco Use: 10 Have you smoked in the past 12 months: No Number of Cigarettes Smoked Daily: 0 If you are a former smoker, when did you quit?: 1989 Information on smoking cessation initiated: No Hx Alcohol Use: No Drug/Substance Use Hx: No Substance Use Type: None Hx Substance Use Treatment: No Review of Systems - Review of Systems Able to Perform ROS?: Yes Is the patient limited Wolof proficient: No Psychiatric: Yes: Emotional Problems, Other (out of body experiences. ) All Other Systems: Reviewed and Negative *Physical Exam - Vital Signs Last Vital Signs Temp Pulse Resp BP Pulse Ox 97.8 F 85 18 117/62 97 05/25/16 14:34 05/25/16 15:35 05/25/16 14:34 05/25/16 14:34 05/25/16 15:35 - Physical Exam HEENT: positive: EOMI, FERNIE Neck: positive: Supple Respiratory/Chest: positive: Lungs Clear, Normal Breath Sounds. negative: Respiratory Distress, Accessory Muscle Use Cardiovascular: positive: Regular Rhythm, Regular Rate, S1, S2. negative: Edema , JVD, Murmur Gastrointestinal/Abdominal: positive: Normal Bowel Sounds, Flat, Soft. negative : Tender Musculoskeletal: positive: Normal Inspection, Other (surgical scars on midline of back. ) Extremity: positive: Normal Inspection, Other (bony defromity of left foot. Inverted and 2nd and 3rd toe deformed. 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 Will send for stat labs to r/o and metabolic causes. CBC, CMP, UA, Utox, and TSH. *DC/Admit/Observation/Transfer Diagnosis at time of Disposition: Medication adverse effect - Discharge Dispostion Disposition: HOME - Referrals Referrals: Melody Bailon MD [Primary Care Provider] - - Patient Instructions Printed Discharge Instructions: DI for Fatigue Additional Instructions: Speak to your physician about the medications you are taking, and asked if they could be causing your symptoms. Return to the emergency department immediately with ANY new, persistent or worsening symptoms. You MUST call and follow up with your doctor tomorrow. Please make sure your doctor reviews the results of your emergency department evaluation.
[2016-05-25 17:00] LABS: ALBUMIN 4.3 g/dl (3.4-5.0); ANION GAP 12 (8-16); BILIRUBIN,TOTAL 0.8 mg/dL (0.2-1.0); CALCIUM 8.9 mg/dL (8.5-10.1); CO2 28 mmol/L (21-32); COCKROFT - GAULT 54.6125; CREATININE 1.3 mg/dL (0.55-1.02); GLUCOSE,RANDOM 82 mg/dL (74-106); SGOT/AST 58 U/L (15-37); SGPT/ALT 39 U/L (12-78)
[2016-05-25 17:03] LABS: ALK PHOS 154 U/L (45-117); TROPONIN I < 0.02 ng/ml (0.00-0.05)
[2016-05-25 17:25] VITALS: BP 137/74; PULSE 87
--- NOTE | 2016-05-26 10:01 | EKG ---
Test Reason : Blood Pressure : / mmHG Vent. Rate : 063 BPM Atrial Rate : 063 BPM P-R Int : 126 ms QRS Dur : 084 ms QT Int : 598 ms P-R-T Axes : 036 017 045 degrees QTc Int : 611 ms NORMAL SINUS RHYTHM NONSPECIFIC ST AND T WAVE ABNORMALITY ABNORMAL ECG Confirmed by MELISSA LYNCH MD ([id number]) on 05/26/2016 10:01:43 AM Referred By: Confirmed By:MELISSA LYNCH MD
== END | disposition home or self-care (01) ==
LOC: JER 14:25
PROC: 3E0337Z Introduction of Electrolytic and Water Balance Substance into Peripheral Vein, Percutaneous Approach (ICD-10-PCS; principal; 2016-05-25)
DX: T50.995A Adverse effect of other drugs, medicaments and biological substances, initial encounter (principal); F41.8 Other specified anxiety disorders; I10 Essential (primary) hypertension; B18.2 Chronic viral hepatitis C
CPT/HCPCS: 36415; 80053; 80307; 82140; 82550; 82553; 83605; 84484; 85025; 85610; 85730; 87040; 93005; 93010; 99283-25